=== PATIENT | male | born 1980 | race Caucasian/White ===

== ENCOUNTER 2020-02-20 14:09 | Emergency (ER) | payer OTHER, SELFPAY ==
[2020-02-20] VITALS (7 sets, daily range): BP systolic 131–166; BP diastolic 81–104; PULSE 69–85; RESP 14–26; TEMP 36.7; O2SAT 97–100; BMI 29.5
--- NOTE | 2020-02-20 14:26 | DI.RAD.S_ITS ---
PROCEDURE: XR CHEST 1V INDICATIONS: chest pain, sob TECHNIQUE: One view of the chest was acquired. COMPARISON: None. FINDINGS: Surgical changes and devices: None. Lungs and pleura: Lungs are clear. No pleural effusions or pneumothorax. Mediastinum: Mediastinal contours appear normal. Heart size is normal. Bones and chest wall: No suspicious bony lesions. Overlying soft tissues appear unremarkable. IMPRESSION: No acute pulmonary process. Dictated by: Dana Brown M.D. on 02/20/2020 at 15:26 Approved by: Dana Brown M.D. on 02/20/2020 at 15:26
--- NOTE | 2020-02-20 14:32 | ED_ITS ---
HPI - Chest Pain <Anne Aviles, BEHAVIOR SPECIALIST-BC - Last Filed: 02/20/20 19:05> General Chief Complaint: Upper Respiratory Symptoms Stated Complaint: Chest pains, fever, SOB Time Seen by Provider: 02/20/20 14:11 Source: patient and family Mode of arrival: Family Vehicle Limitations: no limitations History of Present Illness HPI narrative: The patient is a 39-year-old male current smoker with history of hypertension who presents with a chief complaint of chest pain, shortness of breath, muscle aches and chills. He states this started a few days ago. He states it is nonradiating. He complains states it is hard to breathe. He states he has been vomiting a few times a day and has nausea. He states he noted some speckled blood. States his last bowel movement was this morning and that was normal. He denies any overt chest pain. He states he feels like he has febrile, with muscle aches chills and shakes. He has not taken his temperature. He states he has a history of hypertension, is supposed to take lisinopril which she has not done yet today, and a has a history of gout. He takes allopurinol for this. He has not taken anything at home to feel better. He denies any palpitations or swelling of his extremities. He has unsure whether or not he was exposed anybody with known coronavirus, though admits that his girlfriend has been tested. He states he has not taken his lisinopril today. He denies any specific exacerbating factors of his chest pain, does state he feels occasionally lightheaded and dizzy when walking around. States he feels as though his pain gets worse when he eats, but only sometimes. Related Data Home Medications Medication Instructions Recorded Confirmed lisinopril 5 mg PO QDAY #0 05/07/17 02/20/20 allopurinol 100 mg PO DAILY 02/20/20 02/20/20 Previous Rx's Medication Instructions Recorded ondansetron 4 mg PO Q6H PRN #20 tab 02/20/20 pantoprazole [Protonix] 40 mg PO DAILY #20 tab 02/20/20 Allergies Allergy/AdvReac Type Severity Reaction Status Date / Time Sulfa (Sulfonamide Allergy Intermediate Verified 02/20/20 16:46 Antibiotics) [SULFA (SULFONAMIDE ANTIBIOTICS)] codeine AdvReac Severe Vomiting Verified 02/20/20 16:46 morphine AdvReac Intermediate Hallucinati Verified 02/20/20 16:46 ng Review of Systems <Anne Aviles [facility] - Last Filed: 02/20/20 19:05> Review of Systems Narrative: GENERAL: see HPI HEENT: Denies sinus pain, ear pain, sore throat, difficulty swallowing, dizziness. RESPIRATORY: see HPI CARDIOVASCULAR: see HPI GASTROINTESTINAL: see HPI : Denies dysuria, frequency, incontinence, hematuria, urinary retention. MUSCULOSKELETAL: denies weakness, joint pain, or bony pain SKIN: Denies rash, skin lesions, or other NEUROLOGIC: Denies weakness, headache, numbness, change in speech, confusion, seizures, incoordination. PSYCHIATRIC: No concerning psychosocial issues. 12 point review of systems is negative except for those stated above Patient History <Anne Aviles [facility] - Last Filed: 02/20/20 19:05> Medical History Gout (Acute) Hypertension (Acute) Social History Smoking Status: Current every day smoker Smoking Status: Current every day smoker tobacco type: cigarettes alcohol intake frequency: 0-2 drinks per day Alcohol type: hard liquor Substance Use Type: marijuana Exam <Anne Aviles [facility] - Last Filed: 02/20/20 19:05> Narrative Exam Narrative: GENERAL: This is a well-nourished, well-developed patient, in no acute distress wearing mask HEAD: Atraumatic. Normocephalic. No temporal or scalp tenderness. EYES: Pupils equal round and reactive. Extraocular motions intact. No scleral icterus. No injection or drainage. ENT: Nose without bleeding, purulent drainage or septal hematoma. Throat without erythema, tonsillar hypertrophy or exudate. Uvula midline. Airway patent. NECK: Trachea midline. No JVD or lymphadenopathy. Supple, nontender, no meningeal signs. CARDIOVASCULAR: Regular rate and rhythm GASTROINTESTINAL: Abdomen soft, diffusely tender, nondistended. No hepato-splenomegaly, or palpable masses. No guarding. active bowel sounds all 4 quadrants EXTREMITIES: No clubbing, cyanosis, or edema. No joint tenderness, effusion, or edema noted. BACK: Nontender without deformity or crepitance. No flank tenderness. NEURO: AOx3. SKIN: No rash or erythema on visible skin Initial Vital Signs Initial Vital Signs: Vital Signs Temperature 98.0 F 02/20/20 14:23 Pulse Rate 85 02/20/20 14:23 Respiratory Rate 16 02/20/20 14:23 Blood Pressure 166/104 H 02/20/20 14:23 Pulse Oximetry 100 02/20/20 14:23 <Yamile Recinos MD - Last Filed: 02/28/20 07:31> Initial Vital Signs Initial Vital Signs: Vital Signs Temperature 98.0 F 02/20/20 14:23 Pulse Rate 85 02/20/20 14:23 Respiratory Rate 16 02/20/20 14:23 Blood Pressure 166/104 H 02/20/20 14:23 Pulse Oximetry 100 02/20/20 14:23 Scores <OCTAVIO Barboza - Last Filed: 02/20/20 19:05> GCS [place] coma scale eye opening: Spontaneous [place] coma scale verbal response: Orientated [place] coma scale motor response: Obey commands [place] coma scale total score: 15 Course <OCTAVIO Barboza - Last Filed: 02/20/20 19:05> Orders Ordered: Discontinued Medications Acetaminophen (Tylenol) 975 mg PO NOW ONE Stop: 02/20/20 15:37 Last Admin: 02/20/20 16:22 Dose: 975 mg Documented by: MANUELA Clifton Hydrox/Mg Hydrox/Simethicone 20 ml/ Lidocaine HCl 15 ml 0 ml PO NOW ONE Stop: 02/20/20 15:35 Last Admin: 02/20/20 16:19 Dose: 35 ml Documented by: MANUELA Clifton Hydrox/Mg Hydrox/Simethicone 20 ml/ Lidocaine HCl 15 ml 0 ml PO NOW ONE Stop: 02/20/20 16:16 Last Admin: 02/20/20 16:48 Dose: Not Given Documented by: EVA Sodium Chloride (Normal Saline 0.9%) 1,000 mls @ 1,000 mls/hr IV BOLUS ONE Stop: 02/20/20 16:34 Last Infusion: 02/20/20 19:00 Dose: 0 mls/hr Documented by: Admin: 02/20/20 16:11 Dose: 1,000 mls/hr Documented by: MANUELA Lidocaine HCl (Viscous Lidocaine 2%) 15 ml PO NOW ONE Stop: 02/20/20 16:17 Last Admin: 02/20/20 16:48 Dose: Not Given Documented by: EVA Ondansetron HCl (Zofran) 4 mg IV NOW ONE Stop: 02/20/20 15:35 Last Admin: 02/20/20 16:11 Dose: 4 mg Documented by: MANUELA Pantoprazole Sodium (Protonix) 40 mg IV NOW ONE Stop: 02/20/20 15:35 Last Admin: 02/20/20 16:11 Dose: 40 mg Documented by: MANUELA Vital Signs Vital signs: Vital Signs - 8 hr 02/20/20 14:23 02/20/20 14:28 02/20/20 15:00 Temperature 98.0 F 98.0 F Pulse Rate 85 85 78 Respiratory Rate 16 14 26 H Blood Pressure 166/104 H Blood Pressure [Right Arm] 166/104 H 131/89 Pulse Oximetry 100 100 98 02/20/20 15:30 02/20/20 17:00 02/20/20 18:35 Temperature Pulse Rate 78 77 69 Respiratory Rate 16 16 19 Blood Pressure Blood Pressure [Right Arm] 137/86 141/92 H 131/81 Pulse Oximetry 98 99 99 <Yamile Recinos MD - Last Filed: 02/28/20 07:31> Orders Ordered: Discontinued Medications Acetaminophen (Tylenol) 975 mg PO NOW ONE Stop: 02/20/20 15:37 Last Admin: 02/20/20 16:22 Dose: 975 mg Documented by: MANUELA Clifton Hydrox/Mg Hydrox/Simethicone 20 ml/ Lidocaine HCl 15 ml 0 ml PO NOW ONE Stop: 02/20/20 15:35 Last Admin: 02/20/20 16:19 Dose: 35 ml Documented by: MANUELA Clifton Hydrox/Mg Hydrox/Simethicone 20 ml/ Lidocaine HCl 15 ml 0 ml PO NOW ONE Stop: 02/20/20 16:16 Last Admin: 02/20/20 16:48 Dose: Not Given Documented by: EVA Sodium Chloride (Normal Saline 0.9%) 1,000 mls @ 1,000 mls/hr IV BOLUS ONE Stop: 02/20/20 16:34 Last Infusion: 02/20/20 19:00 Dose: 0 mls/hr Documented by: Admin: 02/20/20 16:11 Dose: 1,000 mls/hr Documented by: MANUELA Lidocaine HCl (Viscous Lidocaine 2%) 15 ml PO NOW ONE Stop: 02/20/20 16:17 Last Admin: 02/20/20 16:48 Dose: Not Given Documented by: EVA Ondansetron HCl (Zofran) 4 mg IV NOW ONE Stop: 02/20/20 15:35 Last Admin: 02/20/20 16:11 Dose: 4 mg Documented by: MANUELA Pantoprazole Sodium (Protonix) 40 mg IV NOW ONE Stop: 02/20/20 15:35 Last Admin: 02/20/20 16:11 Dose: 40 mg Documented by: MANUELA Vital Signs Vital signs: Vital Signs - 8 hr 02/20/20 14:23 02/20/20 14:28 02/20/20 15:00 Temperature 98.0 F 98.0 F Pulse Rate 85 85 78 Respiratory Rate 16 14 26 H Blood Pressure 166/104 H Blood Pressure [Right Arm] 166/104 H 131/89 Pulse Oximetry 100 100 98 02/20/20 15:30 02/20/20 17:00 02/20/20 18:35 Temperature Pulse Rate 78 77 69 Respiratory Rate 16 16 19 Blood Pressure Blood Pressure [Right Arm] 137/86 141/92 H 131/81 Pulse Oximetry 98 99 99 MDM - Chest Pain <JORDIN Barboza- - Last Filed: 02/20/20 19:05> Lab Data Result diagrams: 02/20/20 14:25 02/20/20 14:25 Labs: Lab Results 02/20/20 02/20/20 02/20/20 Range/Units 14:25 14:25 14:25 WBC 8.6 (4.5-11.0) X10^3/uL RBC 4.93 (4.5-5.9) X10^6/uL Hgb 16.2 (13.5-17.5) g/dL Hct 46.4 (41-53) % MCV 94.0 (80-100) fL MCH 32.9 (26-34) PG MCHC 35.0 (30-36) % RDW 12.0 (11.6-14.8) % Plt Count 200 (150-400) X10^3/uL Neut % (Auto) 69.1 (50-75) % Lymph % (Auto) 19.1 L (25-40) % Bartholomew % (Auto) 10.9 (3-14) % Eos % (Auto) 0.4 L (2-4) % Baso % (Auto) 0.5 (0-2) % Neut # (Auto) 5900 (2448-2527) /uL Lymph # (Auto) 1600 (6313-8812) /uL Bartholomew # (Auto) 900 (0-900) /uL Eos # (Auto) 0 (0-450) /uL Baso # (Auto) 0 (0-100) /uL PT 11.5 (10.1-12.7) SECONDS INR 1.0 (0.9-1.3) APTT 32 (26.4-36.2) SECONDS D-Dimer < 200 (<230) ng/mL Sodium (137-145) mmol/L Potassium (3.4-5.1) mmol/L Chloride (98-107) mmol/L Carbon Dioxide (22-32) mmol/L BUN (9-20) mg/dL Creatinine (0.66-1.25) mg/dL Estimated GFR (>60) mL/min BUN/Creatinine Ratio (6-22) Glucose (70-100) mg/dL Calcium (8.4-10.2) mg/dL Magnesium 1.9 (1.6-2.3) mg/dL Ferritin (18-464) ng/mL Total Bilirubin (0.2-1.3) mg/dL AST (17-59) IU/L ALT (<50) IU/L Alkaline Phosphatase (38-126) U/L Total Creatine Kinase 39 L (55-170) U/L CK-MB (CK-2) TNP CK-MB (CK-2) Rel Index TNP Troponin I < 0.012 (0.01-0.034) ng/mL C-Reactive Protein (<1.0) mg/dL NT-Pro-B Natriuret Pep 28 (<125) pg/mL Total Protein (6.3-8.2) g/dL Albumin (3.5-5.0) g/dL Globulin (1.7-4.1) g/dL Albumin/Globulin Ratio (1.0-2.8) Procalcitonin (<0.5) ng/mL COVID-19 PCR (Not Detected) 02/20/20 02/20/20 02/20/20 Range/Units 14:25 14:25 14:25 WBC (4.5-11.0) X10^3/uL RBC (4.5-5.9) X10^6/uL Hgb (13.5-17.5) g/dL Hct (41-53) % MCV (80-100) fL MCH (26-34) PG MCHC (30-36) % RDW (11.6-14.8) % Plt Count (150-400) X10^3/uL Neut % (Auto) (50-75) % Lymph % (Auto) (25-40) % Bartholomew % (Auto) (3-14) % Eos % (Auto) (2-4) % Baso % (Auto) (0-2) % Neut # (Auto) (3946-8085) /uL Lymph # (Auto) (6021-0053) /uL Bartholomew # (Auto) (0-900) /uL Eos # (Auto) (0-450) /uL Baso # (Auto) (0-100) /uL PT (10.1-12.7) SECONDS INR (0.9-1.3) APTT (26.4-36.2) SECONDS D-Dimer (<230) ng/mL Sodium 137 (137-145) mmol/L Potassium 3.7 (3.4-5.1) mmol/L Chloride 101 (98-107) mmol/L Carbon Dioxide 25 (22-32) mmol/L BUN 16 (9-20) mg/dL Creatinine 0.86 (0.66-1.25) mg/dL Estimated GFR > 60.0 (>60) mL/min BUN/Creatinine Ratio 18.6 (6-22) Glucose 125 H (70-100) mg/dL Calcium 9.9 (8.4-10.2) mg/dL Magnesium (1.6-2.3) mg/dL Ferritin 274 (18-464) ng/mL Total Bilirubin 0.8 (0.2-1.3) mg/dL AST 57 (17-59) IU/L ALT 78 H (<50) IU/L Alkaline Phosphatase 89 (38-126) U/L Total Creatine Kinase (55-170) U/L CK-MB (CK-2) CK-MB (CK-2) Rel Index Troponin I (0.01-0.034) ng/mL C-Reactive Protein < 0.5 (<1.0) mg/dL NT-Pro-B Natriuret Pep (<125) pg/mL Total Protein 8.7 H (6.3-8.2) g/dL Albumin 5.0 (3.5-5.0) g/dL Globulin 3.7 (1.7-4.1) g/dL Albumin/Globulin Ratio 1.4 (1.0-2.8) Procalcitonin < 0.05 (<0.5) ng/mL COVID-19 PCR (Not Detected) 02/20/20 02/20/20 Range/Units 14:30 16:55 WBC (4.5-11.0) X10^3/uL RBC (4.5-5.9) X10^6/uL Hgb (13.5-17.5) g/dL Hct (41-53) % MCV (80-100) fL MCH (26-34) PG MCHC (30-36) % RDW (11.6-14.8) % Plt Count (150-400) X10^3/uL Neut % (Auto) (50-75) % Lymph % (Auto) (25-40) % Bartholomew % (Auto) (3-14) % Eos % (Auto) (2-4) % Baso % (Auto) (0-2) % Neut # (Auto) (1699-1052) /uL Lymph # (Auto) (2330-0019) /uL Bartholomew # (Auto) (0-900) /uL Eos # (Auto) (0-450) /uL Baso # (Auto) (0-100) /uL PT (10.1-12.7) SECONDS INR (0.9-1.3) APTT (26.4-36.2) SECONDS D-Dimer (<230) ng/mL Sodium (137-145) mmol/L Potassium (3.4-5.1) mmol/L Chloride (98-107) mmol/L Carbon Dioxide (22-32) mmol/L BUN (9-20) mg/dL Creatinine (0.66-1.25) mg/dL Estimated GFR (>60) mL/min BUN/Creatinine Ratio (6-22) Glucose (70-100) mg/dL Calcium (8.4-10.2) mg/dL Magnesium (1.6-2.3) mg/dL Ferritin (18-464) ng/mL Total Bilirubin (0.2-1.3) mg/dL AST (17-59) IU/L ALT (<50) IU/L Alkaline Phosphatase (38-126) U/L Total Creatine Kinase 34 L (55-170) U/L CK-MB (CK-2) TNP CK-MB (CK-2) Rel Index TNP Troponin I < 0.012 (0.01-0.034) ng/mL C-Reactive Protein (<1.0) mg/dL NT-Pro-B Natriuret Pep (<125) pg/mL Total Protein (6.3-8.2) g/dL Albumin (3.5-5.0) g/dL Globulin (1.7-4.1) g/dL Albumin/Globulin Ratio (1.0-2.8) Procalcitonin (<0.5) ng/mL COVID-19 PCR Not detected (Not Detected) Imaging Data Chest x-ray: Radiologist's Impression: [address] [place] [id number] XRay Report Signed Patient: Conor Child#: [id number] : 1980Acct:[id number] Age/Sex: 39 / MDate of Service: 02/20/20 Loc: ED Accession Number: [id number] Procedure: XR chest 1V Ordering Provider: Anne Aviles- PROCEDURE: XR CHEST 1V INDICATIONS: chest pain, sob TECHNIQUE: One view of the chest was acquired. COMPARISON: None. FINDINGS: Surgical changes and devices: None. Lungs and pleura: Lungs are clear. No pleural effusions or pneumothorax. Mediastinum: Mediastinal contours appear normal. Heart size is normal. Bones and chest wall: No suspicious bony lesions. Overlying soft tissues appear unremarkable. IMPRESSION: No acute pulmonary process. Dictated by: Dana Brown M.D. on 02/20/2020 at 15:26 Approved by: Dana Brown M.D. on 02/20/2020 at 15:26 ECG Data Attestation: I personally reviewed and interpreted this ECG as follows: Interpretation: Sinus rhythm. Ventricular rate 86. P.r. interval 156. QRS 114. MDM Narrative Medical decision making narrative: The patient is a 39-year-old male who presents with a chief complaint of chest pain, shortness of breath, nausea vomiting muscle aches and chills. Overall he appears well and nontoxic. His initial troponin is negative, he has no leukocytosis and a normal chest x-ray. This helps out rule out pneumonia, and a negative D-dimer helps rule out a PE. Negative troponin helps rule acute cardiac disease, as does his normal EKG. Repeat troponin was done. The patient felt much improved after the above-stated medication therapies. given that he feels much improved, has no leukocytosis, does not have an acute abdomen on exam, we will hold off on abdominal CT at this point time. Given that the patient feels much improved after the above-stated therapies, discussed at length decreasing acid in diet, not taking any NSAIDs, strict follow-up with primary care provider. <Yamile Recinos MD - Last Filed: 02/28/20 07:31> Lab Data Labs: Lab Results 02/20/20 02/20/20 02/20/20 Range/Units 14:25 14:25 14:25 WBC 8.6 (4.5-11.0) X10^3/uL RBC 4.93 (4.5-5.9) X10^6/uL Hgb 16.2 (13.5-17.5) g/dL Hct 46.4 (41-53) % MCV 94.0 (80-100) fL MCH 32.9 (26-34) PG MCHC 35.0 (30-36) % RDW 12.0 (11.6-14.8) % Plt Count 200 (150-400) X10^3/uL Neut % (Auto) 69.1 (50-75) % Lymph % (Auto) 19.1 L (25-40) % Bartholomew % (Auto) 10.9 (3-14) % Eos % (Auto) 0.4 L (2-4) % Baso % (Auto) 0.5 (0-2) % Neut # (Auto) 5900 (0977-4899) /uL Lymph # (Auto) 1600 (6101-1944) /uL Bartholomew # (Auto) 900 (0-900) /uL Eos # (Auto) 0 (0-450) /uL Baso # (Auto) 0 (0-100) /uL PT 11.5 (10.1-12.7) SECONDS INR 1.0 (0.9-1.3) APTT 32 (26.4-36.2) SECONDS D-Dimer < 200 (<230) ng/mL Sodium (137-145) mmol/L Potassium (3.4-5.1) mmol/L Chloride (98-107) mmol/L Carbon Dioxide (22-32) mmol/L BUN (9-20) mg/dL Creatinine (0.66-1.25) mg/dL Estimated GFR (>60) mL/min BUN/Creatinine Ratio (6-22) Glucose (70-100) mg/dL Calcium (8.4-10.2) mg/dL Magnesium 1.9 (1.6-2.3) mg/dL Ferritin (18-464) ng/mL Total Bilirubin (0.2-1.3) mg/dL AST (17-59) IU/L ALT (<50) IU/L Alkaline Phosphatase (38-126) U/L Total Creatine Kinase 39 L (55-170) U/L CK-MB (CK-2) TNP CK-MB (CK-2) Rel Index TNP Troponin I < 0.012 (0.01-0.034) ng/mL C-Reactive Protein (<1.0) mg/dL NT-Pro-B Natriuret Pep 28 (<125) pg/mL Total Protein (6.3-8.2) g/dL Albumin (3.5-5.0) g/dL Globulin (1.7-4.1) g/dL Albumin/Globulin Ratio (1.0-2.8) Procalcitonin (<0.5) ng/mL COVID-19 PCR (Not Detected) 02/20/20 02/20/20 02/20/20 Range/Units 14:25 14:25 14:25 WBC (4.5-11.0) X10^3/uL RBC (4.5-5.9) X10^6/uL Hgb (13.5-17.5) g/dL Hct (41-53) % MCV (80-100) fL MCH (26-34) PG MCHC (30-36) % RDW (11.6-14.8) % Plt Count (150-400) X10^3/uL Neut % (Auto) (50-75) % Lymph % (Auto) (25-40) % Bartholomew % (Auto) (3-14) % Eos % (Auto) (2-4) % Baso % (Auto) (0-2) % Neut # (Auto) (0865-1986) /uL Lymph # (Auto) (1883-2329) /uL Bartholomew # (Auto) (0-900) /uL Eos # (Auto) (0-450) /uL Baso # (Auto) (0-100) /uL PT (10.1-12.7) SECONDS INR (0.9-1.3) APTT (26.4-36.2) SECONDS D-Dimer (<230) ng/mL Sodium 137 (137-145) mmol/L Potassium 3.7 (3.4-5.1) mmol/L Chloride 101 (98-107) mmol/L Carbon Dioxide 25 (22-32) mmol/L BUN 16 (9-20) mg/dL Creatinine 0.86 (0.66-1.25) mg/dL Estimated GFR > 60.0 (>60) mL/min BUN/Creatinine Ratio 18.6 (6-22) Glucose 125 H (70-100) mg/dL Calcium 9.9 (8.4-10.2) mg/dL Magnesium (1.6-2.3) mg/dL Ferritin 274 (18-464) ng/mL Total Bilirubin 0.8 (0.2-1.3) mg/dL AST 57 (17-59) IU/L ALT 78 H (<50) IU/L Alkaline Phosphatase 89 (38-126) U/L Total Creatine Kinase (55-170) U/L CK-MB (CK-2) CK-MB (CK-2) Rel Index Troponin I (0.01-0.034) ng/mL C-Reactive Protein < 0.5 (<1.0) mg/dL NT-Pro-B Natriuret Pep (<125) pg/mL Total Protein 8.7 H (6.3-8.2) g/dL Albumin 5.0 (3.5-5.0) g/dL Globulin 3.7 (1.7-4.1) g/dL Albumin/Globulin Ratio 1.4 (1.0-2.8) Procalcitonin < 0.05 (<0.5) ng/mL COVID-19 PCR (Not Detected) 02/20/20 02/20/20 Range/Units 14:30 16:55 WBC (4.5-11.0) X10^3/uL RBC (4.5-5.9) X10^6/uL Hgb (13.5-17.5) g/dL Hct (41-53) % MCV (80-100) fL MCH (26-34) PG MCHC (30-36) % RDW (11.6-14.8) % Plt Count (150-400) X10^3/uL Neut % (Auto) (50-75) % Lymph % (Auto) (25-40) % Bartholomew % (Auto) (3-14) % Eos % (Auto) (2-4) % Baso % (Auto) (0-2) % Neut # (Auto) (9421-2354) /uL Lymph # (Auto) (7769-8518) /uL Bartholomew # (Auto) (0-900) /uL Eos # (Auto) (0-450) /uL Baso # (Auto) (0-100) /uL PT (10.1-12.7) SECONDS INR (0.9-1.3) APTT (26.4-36.2) SECONDS D-Dimer (<230) ng/mL Sodium (137-145) mmol/L Potassium (3.4-5.1) mmol/L Chloride (98-107) mmol/L Carbon Dioxide (22-32) mmol/L BUN (9-20) mg/dL Creatinine (0.66-1.25) mg/dL Estimated GFR (>60) mL/min BUN/Creatinine Ratio (6-22) Glucose (70-100) mg/dL Calcium (8.4-10.2) mg/dL Magnesium (1.6-2.3) mg/dL Ferritin (18-464) ng/mL Total Bilirubin (0.2-1.3) mg/dL AST (17-59) IU/L ALT (<50) IU/L Alkaline Phosphatase (38-126) U/L Total Creatine Kinase 34 L (55-170) U/L CK-MB (CK-2) TNP CK-MB (CK-2) Rel Index TNP Troponin I < 0.012 (0.01-0.034) ng/mL C-Reactive Protein (<1.0) mg/dL NT-Pro-B Natriuret Pep (<125) pg/mL Total Protein (6.3-8.2) g/dL Albumin (3.5-5.0) g/dL Globulin (1.7-4.1) g/dL Albumin/Globulin Ratio (1.0-2.8) Procalcitonin (<0.5) ng/mL COVID-19 PCR Not detected (Not Detected) Discharge Plan Departure Patient Disposition: Home Clinical Impression: Breath shortness Abdominal pain Qualifiers: Abdominal location: generalized Qualified Code(s): R10.84 - Generalized abdominal pain Discharge Date/Time: 02/20/20 19:08 Instructions: DI for Abdominal Pain-Adult, GERD Diet, Coronavirus Disease 2019, Can COVID-19 be prevented? Activity Restrictions/Additional Instructions: Thank you for trusting us with your care today. I am sorry that you are not feeling well hope that you feel better quickly the lab work and imaging that we did came back well. You have responded well to the medications that we have given you in the [place] [facility] department. I sent 2 prescriptions to [facility] in [place] for you. As discussed, I encourage you to decrease acid and spice in your diet. Thus avoid tomatoes, citrus, alcohol, coffee etcetera. I have sent 2 prescriptions to [facility]. This includes Zofran for nausea and Protonix to help decrease the acid in your stomach. Please also avoid NSAIDs such as ibuprofen, Aleve etcetera Please follow-up with primary care provider in the next few days. as discussed, please self quarantine until your coronavirus testing comes back. We will call you if it is positive or negative. Please wash your hands, cover your sneezes etcetera Please come back to emergency department for any acute concerns. This includes chest pain, significant shortness of breath, concern of heart attack stroke etcetera Prescriptions: New pantoprazole [Protonix] 40 mg tablet,delayed release (DR/EC) 40 mg PO DAILY Qty: 20 RF: 0 ondansetron 4 mg tablet,disintegrating 4 mg PO Q6H PRN (Reason: nausea and vomiting) Qty: 20 RF: 0 No Action lisinopril 5 MG tablet 5 mg PO QDAY Qty: 0 RF: 0 allopurinol 100 mg tablet 100 mg PO DAILY RF: 0 Referrals: Jairo Berry MD [Non-Staff] - <Yamile Recinos MD - Last Filed: 02/28/20 07:31> Cosign ED Attending Cosignature Attestation: I was immediately available in the department for consultation throughout this patient's visit. I agree with documentation as above. Yamile Recinos MD
[2020-02-20 14:42] LABS: Add Manual Diff / Slide Review NO; Basophils Absolute Auto 0 /uL (0-100); Basophils Percent Auto 0.5 % (0-2); Eosinophils Absolute Auto 0 /uL (0-450); Eosinophils Percent Auto 0.4 % (2-4); Hematocrit 46.4 % (41-53); Hemoglobin 16.2 g/dL (13.5-17.5); Lymphocytes Absolute Auto 1600 /uL (1100-4500); Lymphocytes Percent Auto 19.1 % (25-40); Mean Corpuscular Hemoglobin 32.9 PG (26-34); Monocytes Absolute Auto 900 /uL (0-900); Monocytes Percent Auto 10.9 % (3-14); Neutrophils Absolute Auto 5900 /uL (1500-7000); Neutrophils Percent Auto 69.1 % (50-75); Platelet Count 200 X10^3/uL (150-400); Red Blood Cell Count 4.93 X10^6/uL (4.5-5.9); White Blood Cell Count 8.6 X10^3/uL (4.5-11.0)
[2020-02-20 14:54] LABS: Prothrombin Time 11.5 SECONDS (10.1-12.7)
[2020-02-20 14:57] LABS: PTT Partial Thromboplastin Tim 32 SECONDS (26.4-36.2)
[2020-02-20 14:58] LABS: Alanine Aminotransferase 78 IU/L (<50); Albumin Globulin Ratio 1.4 (1.0-2.8); Alkaline Phosphatase 89 U/L (38-126); Aspartate Aminotransferase 57 IU/L (17-59); BUN Creatinine Ratio 18.6 (6-22); Bilirubin Total 0.8 mg/dL (0.2-1.3); Blood Urea Nitrogen 16 mg/dL (9-20); Calcium 9.9 mg/dL (8.4-10.2); Carbon Dioxide 25 mmol/L (22-32); Chloride 101 mmol/L (98-107); Estimated Glomerular Filt Rate > 60.0 mL/min (>60); Globulin 3.7 g/dL (1.7-4.1); Glucose 125 mg/dL (70-100); HEMOLYSIS 15 (0-50); Potassium 3.7 mmol/L (3.4-5.1); Sodium 137 mmol/L (137-145); Total Protein 8.7 g/dL (6.3-8.2)
[2020-02-20 14:59] LABS: Creatine Kinase 39 U/L (55-170); D Dimer < 200 ng/mL (<230); Magnesium 1.9 mg/dL (1.6-2.3)
[2020-02-20 15:10] LABS: NT-proBNP (BNP-Adult 18+) 28 pg/mL (<125); Troponin I < 0.012 ng/mL (0.01-0.034)
[2020-02-20 15:16] LABS: Procalcitonin < 0.05 ng/mL (<0.5)
[2020-02-20 15:35] LABS: C-Reactive Protein Quant < 0.5 mg/dL (<1.0)
--- NOTE | 2020-02-20 15:35 | PC.NURSE ---
documentation was put in on the wrong patient for the urinary catheter. Never had a catheter.
[2020-02-20 16:06] LABS: Ferritin 274 ng/mL (18-464)
[2020-02-20] MEDS: PANTOPRAZOLE 40 MG VIAL IV (16:11)
[2020-02-20] MEDS: SODIUM CHLORIDE 0.9% 1,000 ML 1000 ML IV (16:11)
[2020-02-20] MEDS: ONDANSETRON 4 MG/2 ML INJ IV (16:11)
[2020-02-20] MEDS: MAG HYDROX/ALUMINUM/SIMETH SUS 20 ML, LIDOCAINE VISCOUS 2% 15 ML PO (16:19)
[2020-02-20] MEDS: ACETAMINOPHEN 325 MG TABLET 975 MG PO (16:22)
[2020-02-20 17:32] LABS: Creatine Kinase 34 U/L (55-170)
[2020-02-20 17:46] LABS: Troponin I < 0.012 ng/mL (0.01-0.034)
[2020-02-22 02:30] LABS: COVID19 Sendout Not Detected (Not Detected)
== END 2020-02-20 19:08 | disposition home or self-care (01) ==
PROVIDERS: Emergency Provider Nurse Practitioner Family
DX: R06.02 Shortness of breath (principal); R10.84 Generalized abdominal pain; R07.9 Chest pain, unspecified
CPT/HCPCS: 36415; 51701; 71045; 80053; 82550; 82728; 83735; 83880; 84145; 84484; 85025; 85379; 85610; 85730; 86140; 87635; 93005; 96361; 96374; 96375; 99285; C9113; J2405

== ENCOUNTER → 2020-03-11 14:08 | Outpatient (CLI) | payer OTHER, MEDICAID, SELFPAY ==
--- NOTE | 2020-03-11 | DI.CT.S_ITS ---
PROCEDURE: CT ABDOMEN PELVIS W CON INDICATIONS: ABDOMINAL PAIN TECHNIQUE: After the administration of oral and intravenous contrast, 5 mm thick sections acquired from the diaphragms to the symphysis. 5 mm thick coronal and sagittal reformats were performed. For radiation dose reduction, the following was used: automated exposure control, adjustment of mA and/or kV according to patient size. COMPARISON: None. FINDINGS: Image quality: Excellent. ABDOMEN: Lung bases: Lung bases are clear. Heart size is normal. Solid organs: Liver is normal in size and enhancement. Gallbladder appears normal. Biliary system is non-dilated. Pancreas enhances normally. Spleen is normal in size and enhancement. No adrenal nodules. Kidneys are normal in size and enhancement, without hydronephrosis. Peritoneum and bowel: Stomach, small bowel, and colon loops are normal in caliber and wall thickness. No free fluid or air. Nodes and vessels: No retroperitoneal or mesenteric adenopathy. Aorta and inferior vena cava are normal in caliber. Miscellaneous: No ventral hernias. PELVIS: Genitourinary: Bladder wall thickness is normal. Miscellaneous: No inguinal hernias or adenopathy. Bones: No suspicious bony lesions. No vertebral body compression fractures. IMPRESSION: No intestinal obstruction or perforation found. No inflammatory process is seen throughout the lung bases, or the abdomen/pelvis. Source of pain is not seen. Dictated by: Robert Roe M.D. on 03/11/2020 at 16:15 Approved by: Robert Roe M.D. on 03/11/2020 at 16:16
== END ==
PROVIDERS: Referring Provider Physician Assistant; Visit Provider Physician Assistant
DX: R10.84 Generalized abdominal pain (principal); R11.2 Nausea with vomiting, unspecified; R63.4 Abnormal weight loss
CPT/HCPCS: 74177; Q9967

== ENCOUNTER → 2021-12-25 10:56 | Outpatient (CLI) | payer OTHER, MEDICAID, SELFPAY ==
[2021-12-25 20:31] LABS: Add Manual Diff / Slide Review NO; Basophils Absolute Auto 100 /uL (0-100); Basophils Percent Auto 1.1 % (0-2); Eosinophils Absolute Auto 100 /uL (0-450); Eosinophils Percent Auto 1.9 % (2-4); Hematocrit 44.7 % (41-53); Hemoglobin 15.3 g/dL (13.5-17.5); Lymphocytes Absolute Auto 1300 /uL (1100-4500); Lymphocytes Percent Auto 24.1 % (25-40); Mean Corpuscular HGB Conc 34.3 % (30-36); Mean Corpuscular Hemoglobin 32.2 PG (26-34); Mean Corpuscular Volume 93.9 fL (80-100); Monocytes Absolute Auto 400 /uL (0-900); Monocytes Percent Auto 7.4 % (3-14); Neutrophils Absolute Auto 3600 /uL (1500-7000); Neutrophils Percent Auto 65.5 % (50-75); Platelet Count 311 X10^3/uL (150-400); Red Blood Cell Count 4.76 X10^6/uL (4.5-5.9); Red Cell Distribution Width 12.3 % (11.6-14.8); White Blood Cell Count 5.5 X10^3/uL (4.5-11.0)
[2021-12-25 20:32] LABS: Alanine Aminotransferase 66 IU/L (<50); Albumin 4.5 g/dL (3.5-5.0); Albumin Globulin Ratio 1.4 (1.0-2.8); Alkaline Phosphatase 95 U/L (38-126); Aspartate Aminotransferase 41 IU/L (17-59); BUN Creatinine Ratio 15.2 (6-22); Blood Urea Nitrogen 14 mg/dL (9-20); Calcium 9.7 mg/dL (8.4-10.2); Carbon Dioxide 27 mmol/L (22-32); Chloride 103 mmol/L (98-107); Estimated Glomerular Filt Rate > 60.0 mL/min (>60); Globulin 3.2 g/dL (1.7-4.1); Glucose 99 mg/dL (70-100); HEMOLYSIS < 15 (0-50); Potassium 4.5 mmol/L (3.4-5.1); Sodium 136 mmol/L (137-145); Total Protein 7.7 g/dL (6.3-8.2); Uric Acid 9.6 mg/dL (3.5-8.5)
[2021-12-25 20:53] LABS: TSH w/ Reflex to FT4 2.06 uIU/mL (0.47-4.68)
== END ==
PROVIDERS: Visit Provider Physician Assistant Medical
DX: I10 Essential (primary) hypertension (principal); K22.9 Disease of esophagus, unspecified; M1A.00X0 Idiopathic chronic gout, unspecified site, without tophus (tophi)
CPT/HCPCS: 80053; 84443; 84550; 85025

== ENCOUNTER → 2024-02-28 13:21 | Outpatient (CLI) | payer OTHER, MEDICAID, SELFPAY ==
[2024-02-28 19:58] LABS: Add Manual Diff / Slide Review NO; Basophils Absolute Auto 100 /uL (0-100); Basophils Percent Auto 0.7 % (0-2); Eosinophils Absolute Auto 100 /uL (0-450); Eosinophils Percent Auto 1.7 % (2-4); Hematocrit 42.2 % (41-53); Hemoglobin 14.7 g/dL (13.5-17.5); Lymphocytes Absolute Auto 1800 /uL (1100-4500); Lymphocytes Percent Auto 25.3 % (25-40); Mean Corpuscular HGB Conc 34.8 % (30-36); Mean Corpuscular Hemoglobin 33.6 PG (26-34); Mean Corpuscular Volume 96.5 fL (80-100); Monocytes Absolute Auto 700 /uL (0-900); Monocytes Percent Auto 9.3 % (3-14); Neutrophils Absolute Auto 4500 /uL (1500-7000); Platelet Count 320 X10^3/uL (150-400); Red Blood Cell Count 4.37 X10^6/uL (4.5-5.9); Red Cell Distribution Width 12.6 % (11.6-14.8); White Blood Cell Count 7.1 X10^3/uL (4.5-11.0)
[2024-02-28 20:01] LABS: Alanine Aminotransferase 31 IU/L (<50); Albumin 4.5 g/dL (3.5-5.0); Albumin Globulin Ratio 1.5 (1.0-2.8); Alkaline Phosphatase 90 U/L (38-126); Aspartate Aminotransferase 23 IU/L (17-59); BUN Creatinine Ratio 21.6 (6-22); Bilirubin Total 0.7 mg/dL (0.2-1.3); Blood Urea Nitrogen 21 mg/dL (9-20); C-Reactive Protein Quant 1.8 mg/dL (<1.0); Calcium 9.7 mg/dL (8.4-10.2); Carbon Dioxide 28 mmol/L (22-32); Chloride 105 mmol/L (98-107); Cholesterol 249 mg/dL (140-199); Estimated Glomerular Filt Rate > 60 mL/min (>60); Glucose 106 mg/dL (70-100); HDL Cholesterol 38 mg/dL (40-60); HEMOLYSIS < 15 (0-50); LDL Cholesterol Calculated 162 mg/dL (<100); Potassium 4.3 mmol/L (3.4-5.1); Sodium 139 mmol/L (137-145); Total Protein 7.5 g/dL (6.3-8.2); Triglycerides 244 mg/dL (35-150); Uric Acid 8.4 mg/dL (3.5-8.5)
[2024-02-28 20:07] LABS: Erythrocyte Sedimentation Rate 44 MM/HR (0-15)
== END ==
PROVIDERS: PCP Physician Assistant Medical; Visit Provider Physician Assistant Medical
DX: M25.561 Pain in right knee (principal); M1A.00X0 Idiopathic chronic gout, unspecified site, without tophus (tophi); K22.9 Disease of esophagus, unspecified; M25.461 Effusion, right knee
CPT/HCPCS: 80053; 80061; 84550; 85025; 85651; 86140

== ENCOUNTER → 2024-07-03 11:11 | Outpatient (CLI) | payer OTHER, MEDICAID, SELFPAY ==
[2024-07-03 20:29] LABS: Hematocrit 44.8 % (41-53); Hemoglobin 15.7 g/dL (13.5-17.5); Mean Corpuscular Hemoglobin 33.5 PG (26-34); Mean Corpuscular Volume 95.8 fL (80-100); Platelet Count 257 X10^3/uL (150-400); Red Blood Cell Count 4.67 X10^6/uL (4.5-5.9); White Blood Cell Count 6.9 X10^3/uL (4.5-11.0)
[2024-07-03 20:38] LABS: Alanine Aminotransferase 107 IU/L (<50); Albumin 4.7 g/dL (3.5-5.0); Albumin Globulin Ratio 1.5 (1.0-2.8); Alkaline Phosphatase 82 U/L (38-126); Aspartate Aminotransferase 70 IU/L (17-59); Bilirubin Total 0.8 mg/dL (0.2-1.3); Blood Urea Nitrogen 10 mg/dL (9-20); C-Reactive Protein Quant < 0.5 mg/dL (<1.0); Calcium 9.2 mg/dL (8.4-10.2); Carbon Dioxide 26 mmol/L (22-32); Chloride 103 mmol/L (98-107); Cholesterol 308 mg/dL (140-199); Estimated Glomerular Filt Rate > 60 mL/min (>60); Globulin 3.2 g/dL (1.7-4.1); Glucose 98 mg/dL (70-100); HDL Cholesterol 40 mg/dL (40-60); LDL Cholesterol Calculated 206 mg/dL (<100); Potassium 4.5 mmol/L (3.4-5.1); Sodium 138 mmol/L (137-145); Total Protein 7.9 g/dL (6.3-8.2); Triglycerides 308 mg/dL (35-150); Uric Acid 9.5 mg/dL (3.5-8.5)
[2024-07-03 21:40] LABS: Erythrocyte Sedimentation Rate 5 MM/HR (0-15)
[2024-07-04 19:42] LABS: HEMOLYSIS < 15 (0-50)
[2024-07-04 19:46] LABS: Rheumatoid Factor < 8.6 IU/mL (<12.0)
== END ==
PROVIDERS: PCP Physician Assistant Medical; Visit Provider Physician Assistant Medical
DX: M00.9 Pyogenic arthritis, unspecified (principal); M1A.00X0 Idiopathic chronic gout, unspecified site, without tophus (tophi); I10 Essential (primary) hypertension; E78.00 Pure hypercholesterolemia, unspecified
CPT/HCPCS: 80053; 80061; 84550; 85027; 85651; 86038; 86140; 86430

== ENCOUNTER → 2024-07-11 10:58 | Outpatient (CLI) | payer OTHER, MEDICAID, SELFPAY ==
[2024-07-11 19:51] LABS: Uric Acid 11.2 mg/dL (3.5-8.5)
[2024-07-11 19:56] LABS: NT-proBNP (BNP-Adult 18+) < 20 pg/mL (<125)
[2024-07-12 02:26] LABS: Gamma Glutamyl Transpeptidase 41 U/L (15-73)
== END ==
PROVIDERS: PCP Physician Assistant Medical; Visit Provider Physician Assistant Medical
DX: R79.89 Other specified abnormal findings of blood chemistry (principal); R63.5 Abnormal weight gain; M1A.0720 Idiopathic chronic gout, left ankle and foot, without tophus (tophi)
CPT/HCPCS: 82977; 83880; 84550

== ENCOUNTER → 2024-07-17 14:22 | Outpatient (CLI) | payer OTHER, MEDICAID, SELFPAY ==
--- NOTE | 2024-07-17 14:22 | DI.MRI.S_ITS ---
PROCEDURE: MR HEAD/BRAIN WO CON INDICATIONS: neuropathies, possible seizure last week TECHNIQUE: Noncontrast axial T1 spin echo, axial T2 fast spin echo, sagittal and axial FLAIR, axial gradient echo, axial diffusion and ADC, coronal thin-slice T2 FSE through the brain. COMPARISON: None. FINDINGS: Image quality: Excellent. CSF spaces: Ventricles are normal in size and shape. Basal cisterns are patent. No extra-axial fluid collections. Brain: No intracranial bleeds or mass effects. Treadwell-white matter interface appears intact. Diffusion weighted images demonstrate no acute ischemic insults. Brainstem appear normal. Normal intravascular flow voids are present. The hippocampal regions appear normal and symmetric in morphology. Skull and face: Calvarial marrow signal is normal. Orbits appear normal. Sinuses: Sinuses and mastoids are clear. IMPRESSION: Normal brain MRI for age, without a cause of seizures identified. The hippocampi demonstrate a normal, symmetric appearance. To the limits of this noncontrast study, no findings of intracranial masses or mass effect can be seen. Dictated by: Pranav Santizo M.D. on 07/18/2024 at 10:57 Approved by: Pranav Santizo M.D. on 07/18/2024 at 10:59
== END ==
LOC: MRI 14:22
PROVIDERS: PCP Physician Assistant Medical; Referring Provider Physician Assistant Medical; Visit Provider Physician Assistant Medical
DX: G62.9 Polyneuropathy, unspecified (principal); R56.9 Unspecified convulsions
CPT/HCPCS: 70551

== ENCOUNTER → 2024-08-28 08:32 | Outpatient (CLI) | payer OTHER, MEDICAID, SELFPAY ==
[2024-07-21 14:12] LABS: Fecal Immunochemical Test Negative (Negative)
== END ==
PROVIDERS: PCP Physician Assistant Medical; Referring Provider Physician Assistant Medical; Visit Provider Physician Assistant Medical
DX: K22.9 Disease of esophagus, unspecified (principal); K20.90 Esophagitis, unspecified without bleeding
CPT/HCPCS: 82274